=== PATIENT | male | born 1995 | race Caucasian/White ===

== ENCOUNTER 2018-02-16 10:20 | Emergency (ER) | payer MEDICAID, OTHER ==
[2018-02-16] MEDS ORDERED: TORAdol 30 mg Injection IV ONE (10:58)
[2018-02-16] MEDS ORDERED: TYLENOL 325 MG PO ONE (10:58)
[2018-02-16] MEDS ORDERED: Augmentin 875-125 Tablet PO ONE (11:02)
[2018-02-16] MEDS ORDERED: CLINDAMYCIN-D5W 600 MG/50 ML*** 600 MG/50 ML BAG IV STA (11:08)
--- NOTE | 2018-02-16 11:14 | ERPHSYRPT ---
- History of Present Illness Time Seen by Provider: 02/16/18 10:45 Source: patient Exam Limitations: no limitations Patient Subjective Stated Complaint: toothache on bottom left that has now radiated pain to the left side of neck and left side of head Triage Nursing Assessment: pt c/o of a toothache that began on the bottom left approx 1 month ago and now has pain that radiates to the left side of his neck/ jaw and up the left side of his head, rates pain 8/10, pain has awaken him in the night, BP 164/100, pulses normal, no other issues at this time Physician History: Pt states, had a bad tooth on the left back mandible, that caused him pain for some time. Pain went away, and pt did not go to see a dentist. Today the pain came back and was worse, with radiation to the head on left and neck. Pt took Ibuprofen 600mg, but the pain ws not relieved, and pt came to the ER. Pt denies F/C/S. No N/V/D or abdominal ain. No SOB or cough. Timing/Duration: today Quality: aching, throbbing Head Pain Location: temporal, parietal (On the left) Severity of Pain-Max: severe Severity of Pain-Current: severe Recent Head Trauma: no recent headache/trauma (Tooth infection) Modifying Factors: Improves With: other (None) Associated Symptoms: neck pain (on the left) Previous symptoms: same symptoms as today Allergies/Adverse Reactions: carbamazepine [From Tegretol] Allergy (Verified 02/16/18 10:49) ceftriaxone [From Rocephin] Allergy (Verified 02/16/18 10:49) - Review of Systems Constitutional: No Fever, No Chills Eyes: No Symptoms Ears, Nose, & Throat: Other (cavity in the back tooth on the left mandible) Respiratory: No Cough, No Dyspnea Cardiac: No Chest Pain, No Edema, No Syncope Abdominal/Gastrointestinal: No Abdominal Pain, No Nausea, No Vomiting, No Diarrhea Genitourinary Symptoms: No Dysuria Musculoskeletal: Neck Pain (left neck pain) Skin: No Rash Neurological: Headache Psychological: No Symptoms Endocrine: No Symptoms All Other Systems: Reviewed and Negative - Past Medical History Pertinent Past Medical History: Yes Neurological History: Epilepsy Musculoskeletal History: Other Other Medical History: scoliosis - Past Surgical History Past Surgical History: Yes Male Surgical History: Testicular Surgery Other Surgical History: testicular torsion - Social History Smoking Status: Current every day smoker How long have you smoked: 8 years Exposure to second hand smoke: No Drug Use: marijuana Patient Lives Alone: No - Nursing Vital Signs Nursing Vital Signs: Initial Vital Signs Temperature 98.1 F 02/16/18 10:36 Pulse Rate 56 L 02/16/18 10:36 Blood Pressure 164/100 02/16/18 10:36 O2 Sat by Pulse Oximetry 100 02/16/18 10:36 Pain Scale Pain Intensity 6 - Physical Exam General Appearance: severe distress (Secondary to pain) Eye Exam: PERRL/EOMI Ears, Nose, Throat Exam: normal ENT inspection, moist mucous membranes, other ( cavity in back tooth on L mandible) Neck Exam: normal inspection, supple, full range of motion, No meningismus Respiratory Exam: normal breath sounds, lungs clear Cardiovascular Exam: regular rate/rhythm, normal heart sounds Gastrointestinal/Abdominal Exam: soft, No tenderness, No distention Back Exam: normal inspection, normal range of motion Extremity Exam: normal inspection Mental Status Exam: alert, oriented x 3, 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 Exam: normal speech, PERRL, No facial droop Coordination/Gait Exam: normal cerebellar function Motor/Sensory Exam: no motor deficit, no sensory deficit Skin Exam: normal color, warm, dry, No rash Lymphatic Exam: other (No Lymphaenopathy in cervical, occipital, sub mandibular nodes.) SpO2 Interpretation: normal SpO2: 100 Oxygen Delivery: Room Air Ordered Tests: Active Orders 24 hr Category Date Time Status CBC W DIFF Stat Lab 02/16/18 11:45 Completed CMP Stat Lab 02/16/18 11:45 Received Medication Summary Discontinued Medications Generic Name Dose Route Start Last Admin Trade Name Nan PRN Reason Stop Dose Admin Acetaminophen 975 mg 02/16/18 10:58 02/16/18 11:38 Tylenol 325 Mg PO 02/16/18 10:59 975 mg STAT ONE Administration Acetaminophen Confirm 02/16/18 11:23 Tylenol 325 Mg Administered 02/16/18 11:24 Dose 975 mg .ROUTE .STK-MED ONE Amoxicillin/Clavulanate Potassium 875 mg 02/16/18 11:02 02/16/18 11:56 Augmentin 875-125 Tablet PO 02/16/18 11:03 Not Given STAT ONE Clindamycin HCl/Dextrose 600 mg in 50 mls @ 100 mls/hr 02/16/18 11:08 11:37 Clindamycin-D5w 600 Mg/50 Ml IV 02/16/18 11:37 100 mls/hr STAT STA 100 mls/hr Administration Clindamycin HCl/Dextrose Confirm 02/16/18 11:23 Clindamycin-D5w 600 Mg/50 Ml Administered 02/16/18 11:24 Dose 600 mg in 50 mls @ ud IV .STK-MED ONE Ketorolac Tromethamine 30 mg 02/16/18 10:58 02/16/18 11:38 Toradol 30 Mg Injection IV 02/16/18 10:59 30 mg STAT ONE Administration Ketorolac Tromethamine Confirm 02/16/18 11:23 Toradol 30 Mg Injection Administered 02/16/18 11:24 Dose 30 mg .ROUTE .STK-MED ONE Lab/Rad Data: Laboratory Result Diagrams 02/16/18 11:45 Laboratory Results 02/16/18 Range/Units 11:45 WBC 9.4 (4.0-10.5) K/mm3 RBC 5.63 H (4.1-5.6) M/mm3 Hgb 14.9 (12.5-18.0) gm/dl Hct 44.9 (42-50) % MCV 79.8 (78-100) fl MCH 26.4 (26-32) pg MCHC 33.2 (32-36) g/dl RDW 14.8 H (11.5-14.0) % Plt Count 267 (150-450) K/mm3 MPV 10.0 H (6-9.5) fl Gran % 76.2 H (36.0-66.0) % Eos # (Auto) 0.03 (0-0.5) Absolute Lymphs (auto) 1.44 (1.0-4.6) Absolute Monos (auto) 0.75 (0.0-1.3) Lymphocytes % 15.3 L (24.0-44.0) % Monocytes % 8.0 (0.0-12.0) % Eosinophils % 0.3 (0.00-5.0) % Basophils % 0.2 (0.0-0.4) % Absolute Granulocytes 7.18 H (1.4-6.9) Basophils # 0.02 (0-0.4) - Progress Progress: improved Air Movement: good Blood Culture(s) Obtained: No Antibiotics given: Yes Will see patient in: other (F/U with a dentist) Counseled pt/family regarding: need for follow-up (F/U with a dentist) - Departure Time of Disposition: 12:11 Departure Disposition: Home Clinical Impression: Tooth ache Condition: Stable Critical Care Time: No Prescriptions: Clindamycin HCl 300 mg PO Q8H 10 Days #30 capsule
[2018-02-16] MEDS ORDERED: CLINDAMYCIN-D5W 600 MG/50 ML*** 600 MG/50 ML BAG IV ONE (11:23)
[2018-02-16] MEDS ORDERED: TYLENOL 325 MG ONE (11:23)
[2018-02-16] MEDS ORDERED: TORAdol 30 mg Injection ONE (11:23)
[2018-02-16 11:49] LABS: BASOPHIL % 0.2 % (0.0-0.4); Basophil (Absolute #) 0.02 (0-0.4); Eosinophil % 0.3 % (0.00-5.0); Eosinophil (Absolute #) 0.03 (0-0.5); Granulocyte Absolute (ANC) 7.18 (1.4-6.9); Granulocytes % 76.2 % (36.0-66.0); Hematocrit 44.9 % (42-50); Hemoglobin 14.9 gm/dl (12.5-18.0); Lymphocyte (Absolute #) 1.44 (1.0-4.6); Lymphocytes % 15.3 % (24.0-44.0); Mean Cell Volume 79.8 fl (78-100); Mean Corpuscular Hgb Concent. 33.2 g/dl (32-36); Monocyte (Absolute #) 0.75 (0.0-1.3); Platelet Count 267 K/mm3 (150-450); Red Blood Count 5.63 M/mm3 (4.1-5.6); Red Cell Distribution Width 14.8 % (11.5-14.0); White Blood Count 9.4 K/mm3 (4.0-10.5)
[2018-02-16 11:53] LABS: Mean Corpuscular Hemoglobin 26.4 pg (26-32)
[2018-02-16 12:05] LABS: ALBUMIN 4.8 g/dL (3.5-5.0); ALKALINE PHOSPHATASE 119 U/L (38-126); ANION GAP 14.5 MEQ/L (5-15); BLOOD UREA NITROGEN 10 mg/dL (9-20); CHLORIDE 103 mmol/L (98-107); Calcium 9.6 mg/dL (8.4-10.2); Carbon Dioxide 27 mmol/L (22-30); Creatinine 1 0.77 mg/dL (0.66-1.25); Glucose 109 mg/dL (74-106); Potassium 4.2 mmol/L (3.5-5.1); SGOT/AST 27 U/L (17-59); SGPT/ALT 17 U/L (0-50); SODIUM 141 mmol/L (137-145); Total Protein 7.7 g/dL (6.3-8.2)
[2018-02-16 12:13] VITALS: BP 134/86; PULSE 57; O2SAT 98
== END 2018-02-16 12:20 | disposition home or self-care (01) ==
LOC: ED 10:20
DX: K08.89 Other specified disorders of teeth and supporting structures (principal)
CPT/HCPCS: 36415; 80053; 85025; 96374; 99284; J1885; A9270-GY